=== PATIENT | male | born 1955 | race Caucasian/White ===

== ENCOUNTER 2022-08-16 17:28 | Emergency (ER) | payer MEDICARE, SELFPAY ==
[2022-08-16 17:51] VITALS: BP 123/84; PULSE 60; RESP 16; TEMP 36.3; O2SAT 99
--- NOTE | 2022-08-16 18:07 | ED.EAR ---
HPI - Ear Problem General Chief complaint: Upper Respiratory Infection Stated complaint: swimmers ear Time Seen by Provider: 08/16/22 18:07 Source: patient Mode of arrival: ambulatory Limitations: no limitations History of Present Illness HPI Narrative: 67-year-old male presented for complaint of left ear pain and left-sided throat pain/scratchy sensation for about 3 days. Denies ear drainage, swelling, tenderness, dizziness, nausea vomiting, fevers or chills. Denies sick contacts. He has taken Tylenol and ibuprofen for symptoms. States he has had swimmer's ear in the past and feels similar. Complaint: ear pain Related Data Allergies Allergy/AdvReac Type Severity Reaction Status Date / Time No Known Allergies Allergy Verified 08/16/22 18:18 Review of Systems Review of Systems: CONSTITUTIONAL: Denies malaise, chills, or fever. EYES: Denies visual changes, redness, or discharge. ENT: Denies rhinorrhea, congestion, sinus pain Reports ear pain and sore throat. CARDIOVASCULAR: Denies chest pain, palpitations, or edema. RESPIRATORY: Denies cough or dyspnea. GASTROINTESTINAL: Denies abdominal pain, nausea, vomiting, diarrhea SKIN: Denies rash or itching. MUSCULOSKELETAL: Denies myalgia. NEUROLOGIC: Denies headache. All systems reviewed & are unremarkable except as noted in HPI and below PMFSH Past Medical History Medical History Cataract Colon cancer screening Hyperlipidemia Osteoporosis Seasonal allergies Surgical History Surgical History History of carpal tunnel release Family History Family History Mother , Age 75 [place] No problems noted. Father , Age 78 Stroke Carcinoma of colon Grandparent , Age 88 from Old Age No problems noted. Grandparent , Age 38 from Fever No problems noted. Grandparent , Age 93 from Old Age No problems noted. Grandparent , Age 73 Unknown No problems noted. Social History Social History Smoking status: Never smoker Alcohol intake: never Substance use: never Lack of Transportation: No Lack of Food: Never True Current Housing: I Have Housing Concerned About Future Housing: No Difficulty Paying Gas/Electric Bills: No Difficulty Paying for Meds: No Currently Unemployed: No Education: Associate Degree Difficulty w/ Childcare or Family Care: No Gender identity (if verbalized by the patient): Male Comments At time of signature, agree with nursing past medical, surgical, social and family history. There is no relevant family history pertinent to the presenting complaint Exam Narrative: GENERAL: Well-appearing, well-nourished, and in no acute distress. HEAD: Normocephalic EYES: PERRLA, conjunctivae clear ENT: Nares clear. Mucous membranes moist. TM pearly howard with dull light reflex bilaterally; no tragal tenderness. Oropharynx erythematous, Tonsils not enlarged and without exudate, no drooling, no hoarseness, no trismus, uvula midline. NECK: Supple. No lymphadenopathy CHEST: Clear to auscultation, breath sounds equal. No wheezing, rhonchi, rales, or stridor. No respiratory distress, speaks in full sentences. HEART: Regular rate and rhythm. No murmur heard. SKIN: Warm, dry, no rash. NEURO: Alert and oriented x3. PSYCH: Normal mood and affect Course Course Emergency Course: Patient is aware of diagnosis, understands and agrees to treatment plan. Anticipatory guidance given. Patient agrees to follow-up as directed and is aware of reasons to seek care at the emergency department. Portions of this record may have been created with voice recognition software Level of Care: Ciro Vogt
== END 2022-08-16 18:30 | disposition home or self-care (01) ==
PROVIDERS: Emergency Provider Nurse Practitioner Family; PCP Family Medicine
DX: J02.0 Streptococcal pharyngitis (principal); E78.5 Hyperlipidemia, unspecified; M81.0 Age-related osteoporosis without current pathological fracture
CPT/HCPCS: 87880; 99213; G0463

== ENCOUNTER 2022-11-12 10:34 | Outpatient (CLI) | payer MEDICARE, SELFPAY ==
[2022-11-12 18:46] LABS: Prostate Specific Antigen 4.4 ng/mL (< OR = 4.0)
== END 2022-11-12 10:35 | disposition home or self-care (01) ==
LOC: ANHGOSHLAB 10:37
PROVIDERS: PCP Family Medicine; Visit Provider Family Medicine
DX: R97.20 Elevated prostate specific antigen [PSA] (principal); Z12.5 Encounter for screening for malignant neoplasm of prostate
CPT/HCPCS: 36415; 84153

== ENCOUNTER 2022-11-29 12:46 | Outpatient (NON) | payer MEDICARE, SELFPAY | END 2022-11-29 12:47 | disposition home or self-care (01) | PROVIDERS: PCP Family Medicine; Visit Provider Nurse Practitioner | DX: C44.319 Basal cell carcinoma of skin of other parts of face (principal) | CPT/HCPCS: 88305 ==

== ENCOUNTER 2022-12-27 13:53 | Outpatient (NON) | payer MEDICARE, SELFPAY | END 2022-12-27 13:54 | disposition home or self-care (01) | LOC: ANHLAB 13:53 | PROVIDERS: PCP Family Medicine; Visit Provider Nurse Practitioner | DX: C44.319 Basal cell carcinoma of skin of other parts of face (principal) | CPT/HCPCS: 88305; 88331 ==

== ENCOUNTER 2023-09-29 09:03 | Outpatient (CLI) | payer MEDICARE, SELFPAY ==
[2023-09-29 15:36] LABS: Alanine Aminotransferase 20 U/L (6-50); Albumin Level 4.4 g/dL (3.5-5.1); Alkaline Phosphatase 91 U/L (38-126); Anion Gap 6 mmol/L (4-12); Aspartate Amino Transferase 47 U/L (17-59); Bilirubin,Total 0.6 mg/dL (0.2-1.3); Blood Urea Nitrogen 13 mg/dL (9-20); Calcium 8.9 mg/dL (8.4-10.2); Carbon Dioxide 33 mmol/L (22-30); Chloride 99 mmol/L (98-107); Cholesterol 122 mg/dL (0-200); Estimated Glomerular Filt Rate > 60; Glucose 85 mg/dL (65-110); HDL Direct 29 mg/dL; Potassium 4.1 mmol/L (3.4-5.0); Sodium 138 mmol/L (137-145); Triglycerides 173 mg/dL (<150)
[2023-09-29 15:47] LABS: LDL Cholesterol Direct 76 mg/dL
== END 2023-09-29 09:04 | disposition home or self-care (01) ==
PROVIDERS: PCP Family Medicine; Visit Provider Family Medicine
DX: Z13.228 Encounter for screening for other metabolic disorders (principal); I10 Essential (primary) hypertension; Z13.220 Encounter for screening for lipoid disorders
CPT/HCPCS: 36415; 80053; 80061

== ENCOUNTER 2024-03-19 08:06 | Outpatient (CLI) | payer MEDICARE, SELFPAY | END 2024-03-19 08:07 | disposition home or self-care (01) | LOC: ANHGOSHLAB 08:08 | PROVIDERS: PCP Family Medicine | DX: R97.20 Elevated prostate specific antigen [PSA] (principal) | CPT/HCPCS: 36415; 84153 ==

== ENCOUNTER 2024-08-06 08:01 | Outpatient (CLI) | payer MEDICARE, SELFPAY ==
--- OUTSIDE RECORDS SUMMARY | 2024-08-06 08:25 | XMS_ITS | Clinical Summary ---
Author Organization [facility] Address [address] [place] [address] Care Team Providers Care Vine Pruner Name Role Phone Milliekerry Benji ESTEVEZ Primary Care Provider [phone] Allergies No known active allergies Medications atorvastatin (LIPITOR) 20 mg tabletIndication s:hyperlipidemia Take 1 tablet (20 mg total) by mouth nightly 05/04/2021 Active losartan (COZAAR) 50 mg tabletIndication s:hypertension Take 1 tablet (50 mg total) by mouth nightly 06/21/2022 Active amLODIPine (NORVASC) 5 mg tabletIndication s:hypertension Take 1 tablet (5 mg total) by mouth nightly 09/21/2022 Active ascorbic acid/elderberry fruit (AIRBORNE, ELDERBERRY, ORAL)Indications :supplement Take 1 tablet by mouth nightly Active multivitamin capsuleIndicatio ns:Vitamin Deficiency Prevention Take 1 capsule by mouth nightly Active vit A/vit C/vit E/zinc/copper (PRESERVISION AREDS ORAL)Indications :supplement Take 1 tablet by mouth nightly Active tolterodine LA (DETROL LA) 4 mg 24 hr capsuleIndicatio ns:Urinary Urgency Take 1 capsule (4 mg total) by mouth nightly 30 capsule 11 09/27/2023 Active tamsulosin (FLOMAX) 0.4 mg extended release capsuleIndicatio ns:Benign prostatic hyperplasia with weak urinary stream Take 1 capsule (0.4 mg total) by mouth daily 30 capsule 11 02/01/2024 02/01/20 25 Active Active Problems Problem Noted Date Diagnosed Date Elevated PSA 01/27/2023 Immunizations Immunization Administration Dates Next Due Hep B Vaccine 02/02/1993,08/27/1992,07/30/1992 Influenza, Quadrivalent, Spl it, Preservative Free, Intramuscular 01/29/2022 Tdap 03/23/2022 Surgical History Surgery Date Site/Laterality Comments CATARACT EXTRACTION 04/18/2012 - 04/17/2013 Bilateral CYST REMOVAL 04/18/1971 - 04/17/1972 Left leg SKIN CANCER EXCISION 09/16/2022 - 10/15/2022 face CARPAL TUNNEL RELEASE 04/18/1989 - 04/17/1990 Right COLONOSCOPY x4, last one 2019 Medical History Medical History Date Comments Hypertension High cholesterol Skin cancer Anesthesia complication woke up in the middle of carpal tunnel surgery Family History Medical History Relation Name Comments Cancer Father Relation Name Status Comments Father Social History Tobacco Use Types Packs/Day Years Used Date Smoking Tobacco: Never Passive Smoke Exposure: Past Smokeless Tobacco: Never AUDIT-C Answer Date Recorded Q1: How often do you have a drink containing alcohol? Never 02/17/2023 Q2: How many drinks containi ng alcohol do you have on a typical day when you are drinking? Patient does not drink Q3: How often do you have si x or more drinks on one occasion? Never 02/17/2023 Personal Safety Answer Date Recorded Have you ever been in or are you currently in a harmful physical or emotional relationship or is someone making you feel afraid or unsafe? 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 Gender Identity Male 11/17/2022 8:26 AM CDT Sexual Orientation Straight 11/17/2022 8: 26 AM CDT Obstetrics History Last Filed Vital Signs Vital Sign Reading Time Taken Comments Blood Pressure 127/69 02/17/2023 9:20 AM CDT Pulse 66 02/17/2023 9:30 AM CDT Temperature 36.2 C (97.2 F) 02/17/2023 9:05 AM CDT Respiratory Rate 18 02/17/2023 9:30 AM CDT Oxygen Saturation 99% 02/17/2023 9:30 AM CDT Inhaled Oxygen Concentration - - Weight 68.5 kg (151 lb) 02/02/2023 2:12 PM CDT Height 175.3 cm (5' 9 ) 02/02/2023 2:12 PM CDT Body Mass Index 22.3 02/02/2023 2:12 PM CDT Plan of Treatment Health Maintenance Due Date Last Done Comments Colon Cancer Screening-Colonoscopy 1957 Depression Screening 1957 Hepatitis C Screening 1957 Prostate Cancer Screening-PSA 1957 Pneumococcal vaccine 65+ (1 of 1 - PCV) 2007 Zoster Vaccine (1 of 2) 2007 Well Visit 65+ 2022 Covid-19 Vaccine ( season) 2023, 06/23/2020 Fall Risk Assessment 02/18/2024 02/17/2023 Influenza Vaccine (Season Ended) 2024 01/30/20 DTaP/Tdap/Td Vaccine (2 - Td or Tdap) 03/23/203209/2021 Hepatitis B Screening Completed 02/02/1993 , 08/27/1992, 07/30/1992 Insurance AET MEDICARE AETNA MEDICARE Care Teams Vine Pruner Relationship Specialty Start Date End Date Benji Quijano DO [address] [place] [address] [address] JAC[address]BS [address] [place] [id number] PCP - General Family Medicine 11/16/22
--- OUTSIDE RECORDS SUMMARY | 2024-08-06 08:25 | XMS_ITS | Referral Summary ---
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
--- OUTSIDE RECORDS SUMMARY | 2024-08-06 08:25 | XMS_ITS | Encounter Summary ---
Author Organization [facility] Address [address] [place] [address] Phone Care Team Providers Care Lining Setter Name Role Phone Benji Quijano DO Primary Care Provider [phone] Encounter Details Date Type Department Care Team (Late st Contact Info) Description 03/27/2024 Telephone 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
--- OUTSIDE RECORDS SUMMARY | 2024-08-06 08:26 | XMS_ITS | Clinical Summary ---
Author Organization [facility] Address [address] Jensenn: Epic Prelude ADT RA [place] [address] Care Team Providers Care Freight Dispatcher Name Role Phone Unavailable Primary Care Provider Unavailabl e Allergies No known active allergies Medications atorvastatin (LIPITOR) 20 mg tablet TAKE ONE TABLET BY MOUTH ONCE DAILY 90 Tablet 4 03/17/2022 7:15 PM PAIN COORDINATOR 05/04/2021 Active azithromycin (ZITHROMAX) 250 mg tablet Take 2 tablets by mouth on day 1, then take 1 tablet by mouth daily until finished. 6 Tablet 09/24/2021 5:57 PM CDT 09/24/2021 Active amoxicillin (AMOXIL) 500 mg capsule Take two capsules (1,000mg) by mouth once daily for 10 days 20 Capsule 08/16/2022 6:48 PM CDT 08/16/2022 Active tamsulosin (FLOMAX) 0.4 mg capsule Take 1 Capsule (0.4 mg) by mouth daily. 30 Capsule 10/05/2023 4:28 PM CDT 01/18/2023 Active tolterodine (DETROL LA) 4 mg Extended Release 24 hour capsule Take 1 capsule (4 mg total) by mouth nightly 30 Capsule 05/18/2024 5:59 PM PAIN COORDINATOR 09/27/2023 Active erythromycin (ILOTYCIN) 5 mg/gram (0.5 %) ointment Apply a 1 inch thin layer on eyelid every night at bedtime 3.5 Gram 12/15/2023 2:36 PM CDT 12/15/2023 Active tamsulosin (FLOMAX) 0.4 mg capsule Take 1 capsule (0.4 mg total) by mouth daily 30 Capsule 05/18/2024 5:59 PM PAIN COORDINATOR 02/01/2024 Active losartan (COZAAR) 50 mg tablet Take 1 Tablet (50 mg) by mouth daily. 90 Tablet 1 05/18/2024 5:59 PM PAIN COORDINATOR 02/27/2024 Active amLODIPine (NORVASC) 5 mg tablet Take 1 Tablet (5 mg) by mouth daily. 90 Tablet 1 07/07/2024 5:20 PM CDT 03/23/2024 Active amLODIPine (NORVASC) 5 mg tablet Take 1 Tablet (5 mg) by mouth daily. 90 Tablet 1 04/03/2024 Active atorvastatin (LIPITOR) 20 mg tablet Take 1 Tablet (20 mg) by mouth daily. 90 Tablet 1 06/17/2024 2:33 PM PAIN COORDINATOR 04/03/2024 Active losartan (COZAAR) 50 mg tablet Take 1 Tablet (50 mg) by mouth daily. 90 Tablet 1 04/03/2024 Active Immunizations Immunization Administration Dates Next Due (PREVNAR 20)(6 WKS UP) PNEUM OCOCCAL CONJUGATE VACCINE 20-VALENT (PCV20), POLYSACCHARIDE AUL879 CONJUGATE, ADJUVANT 0.5 ML (PF) IM 06/27/2022 INFLUENZA VACCINE HIGH DOSE QUADRIVALENT 65 YR U P PF IM 01/27/2023 INFLUENZA VACCINE HIGH DOSE TRIVALENT SPLIT VIRUS, (65 YR UP), 0.5ML (PF), IM 02/08/2024 INFLUENZA VACCINE QUADRIVALENT 6 MOS UP PF IM Social History Tobacco Use Types Packs/Day Years Used Date Smoking Tobacco: Never Assessed Sex and Gender Information Value Date Recorded Sex Assigned at Not on file Legal Sex Male 3:27 PM CDT Gender Identity Not on file Sexual Orientation Not on file Plan of Treatment Health Maintenance Due Date Last Done Comments DTAP/TDAP/TD VACCINES (1 - Tdap) 1976 COLORECTAL SCREENING 2002 Colorectal Cancer Screening 2002 FIT-DNA Q 3 years 2002 FIT/FOBT Q 1 year 2002 Flex Sig/CT Colonography Q 5 years 2002 ZOSTER VACCINE (1 of 2) 2007 RSV VACCINE (60+ or ) (1 - 1-dose 75+ series) 2032 PNEUMOCOCCAL VACCINE 50+ YEARS Completed 06/27/2022 INFLUENZA VACCINE Completed 02/08/2024, , 01/29/2022 Insurance RX AETNA Medicare Part D RX [employer] (INTERNAL) [facility]
[2024-08-06 13:59] LABS: Alanine Aminotransferase 21 U/L (6-50); Albumin Level 4.4 g/dL (3.5-5.1); Alkaline Phosphatase 81 U/L (38-126); Anion Gap 7 mmol/L (4-12); Aspartate Amino Transferase 38 U/L (17-59); Bilirubin,Total 0.6 mg/dL (0.2-1.3); Blood Urea Nitrogen 13 mg/dL (9-20); Calcium 8.9 mg/dL (8.4-10.2); Carbon Dioxide 32 mmol/L (22-30); Chloride 98 mmol/L (98-107); Cholesterol 155 mg/dL (0-200); Estimated Glomerular Filt Rate > 60; Glucose 96 mg/dL (65-110); HDL Direct 33 mg/dL; Potassium 4.3 mmol/L (3.4-5.0); Sodium 137 mmol/L (137-145); Triglycerides 149 mg/dL (<150)
[2024-08-06 14:12] LABS: LDL Cholesterol Direct 79 mg/dL
[2024-08-06 14:21] LABS: Vitamin D 25 Hydroxy 42.3 ng/mL
== END 2024-08-06 08:02 | disposition home or self-care (01) ==
LOC: ANHGOSHLAB 08:02
PROVIDERS: PCP Emergency Medicine; Visit Provider Emergency Medicine
DX: E78.5 Hyperlipidemia, unspecified (principal); E55.9 Vitamin D deficiency, unspecified
CPT/HCPCS: 36415; 80053; 80061; 82306